=== PATIENT | female | born 1945 | race Caucasian/White ===

== ENCOUNTER 2023-07-13 10:54 | Emergency (ER) | payer MEDICARE, OTHER, SELFPAY ==
[2023-07-13 11:03] VITALS: BP 150/71
--- NOTE | 2023-07-13 12:27 | ED.GENMED ---
History of Present Illness
General
Chief Complaint: Facial Problem
Time Seen by Provider: 07/13/23 12:16
Travel History
Have you had any contact with someone who has COVID-19?: No
Do you have any symptoms of coronavirus? Fever > 100 degrees, chills, cough, shortness of breath, sore throat, loss of taste or smell, muscle aches, or headache?: No
History of Present Illness
History of Present Illness:
77-year-old female with history of hypertension presents the emergency department for evaluation of left facial droop that began 2 to 3 days ago. She notices increased tearing, denies any vision changes, neck pain, nausea, vomiting, or extremity
paresthesias. Denies any recent tick bites to her knowledge. Denies any recent cold or flu symptoms. Denies any facial rashes or ear pain.
Past History
Past History
ED Past Medical History: Cancer (Skin CA), HTN, Hypothyroidism and Other (Back pain, )
ED Past Surgical History: Gynecological (Hysterectomy), Orthopedic (Right hip replacement, elbow surgery, Laminectomy) and Other (parathyroidectomy, thyroidectomy)
Social History
Tobacco: Non-smoker
Alcohol: Occasional
Personal:
Living: with family
Employment: Employed
Review of Systems
Review of Systems
Allergies reviewed?: Yes
All Other Systems: ROS reviewed and negative except as documented in HPI and ROS
Phy Exam
Physical Exam
Physical Exam:
GEN: Well appearing, NAD, WDWN
HEENT: Oral mucosa moist, no scleral icterus, no nasal congestion. Left external auditory canal and tympanic membrane are clear with no evidence for vesicular lesions
Cardiac: Regular rate
Lung: No respiratory distress, no tachypnea
MSK: No gross deformity or injuries
Skin: Good color, no pallor or jaundice, no rashes
Neuro: AO x3; significant left-sided facial asymmetry involving the brow, minimal correction noted with motor activity ;BUE strength 5/5 in all callejas, sensation intact and symmetric. BLE strength 5/5 in all callejas, sensation intact and symmetric
Psych: Calm, cooperative
Course
Orders/Labs/Results
Orders:
Orders
07/13/23 12:48
Lyme Progressive Urgent
Vital Signs
Initial and Last Documented VS:
Initial Vital Signs
Temp Pulse Resp BP Pulse Ox
98.2 F 79 18 150/71 94
07/13/23 11:03 07/13/23 11:03 07/13/23 11:03 07/13/23 11:03 07/13/23 11:03
Last Documented Vital Signs
Temp Pulse Resp BP Pulse Ox
98.2 F 79 18 150/71 94
07/13/23 11:03 07/13/23 11:03 07/13/23 11:03 07/13/23 11:03 07/13/23 11:03
MDM/Problems Addressed
MDM/Problems Addressed:
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 There is no other sign of focal neurologic deficit concerning for subacute stroke. Will send Lyme titer but given lack of history suggestive of tick exposure or Lyme disease
will start the patient on high-dose steroids, antibiotics will be added if Lyme titer is positive
*Critical Care Note
Total Time (30-74mins, 75-104mins- exclusive of procedures): Not Applicable
ED Attending Note
-
Portions of this chart may have been created with voice recognition software.� Occasional wrong word or��sound alike� substitutions may have occurred due to the inherent limitations of voice recognition software.
Discharge Plan
Departure
Patient Disposition: Home (Routine Discharge)
Date of Disposition: 07/13/23
Time of Disposition: 12:37
Patient with high blood pressure during this ER visit?: No
Discharge Problem:
Apple's palsy
Instructions: Apple's Palsy (DC)
Prescriptions:
New
prednisone 50 mg tablet
50 mg PO DAILY 7 Days Qty: 7 0RF
No Action
tramadol 50 MG tablet
50 mg PO PRN (Reason: pain)
calcium carbonate [Oyster Shell Calcium 500] 500 MG tablet
2 PO DAILY
levothyroxine [Synthroid] 125 MCG tablet
125 mcg PO DAILY
naproxen [EC-Naprosyn] 375 MG tablet,delayed release (DR/EC)
375 mg PO BID
Multivitamin
1 PO DAILY
Norvasc
5 mg PO DAILY
Tylenol with Codeine
1 PO PRN (Reason: pain)
oxycodone-acetaminophen [Percocet] 1 EACH tablet
1 ea PO Q4HPRN PRN (Reason: pain) Qty: 20 0RF
prednisone 10 MG tablet
10 mg PO .TAPER Qty: 30 0RF
Rx Instructions:
Take 50mg daily for 2 days, 40mg daily for 2 days, 30mg daily for 2 days, 20mg daily for 2 days, 10mg daily for 2 days
oxycodone-acetaminophen 5 MG/325 MG tablet
1 tab PO Q4HPRN PRN (Reason: severe pain) Qty: 20 0RF
Referrals:
Adriana Rai MD [Family Provider] -
Activity Restrictions/Additional Instructions:
If your Lyme test is positive, we will stop the steroids and start antibiotics. This test will take 3-4 days
Interventions
Interventions:
*Risk Screen - Suicide Last Done: 07/13/23 11:03
*General Assessment Last Done: 07/13/23 11:54
*Neglect/Abuse Screening Last Done: 07/13/23 11:03
ED- Fall Risk Assessment Last Done: 07/13/23 11:53
*ED COVID-19 Vaccine History Last Done: 07/13/23 11:03
*Nursing Disposition Last Done: 07/13/23 12:59
ED- Neurological Assessment Last Done: 07/13/23 11:52
ED-Skin Assessment Last Done: 07/13/23 11:52
Discharge Date and Time
Discharge Date/Time: 07/13/23 12:59
Print Language: [place]
[2023-07-14 15:08] LABS: Lyme Antibody Screen, EIA Negative (Negative)
== END 2023-07-13 12:59 | disposition home or self-care (01) ==
LOC: EMR 10:54
PROVIDERS: Physician Assistant; EMERGENCY PHYSICIAN Emergency Medicine; FAMILY PHYSICIAN Family Medicine
DX: G51.0 Bell's palsy (principal); I10 Essential (primary) hypertension; E03.9 Hypothyroidism, unspecified; Z85.828 Personal history of other malignant neoplasm of skin; Z96.641 Presence of right artificial hip joint; Z88.5 Allergy status to narcotic agent
CPT/HCPCS: 99283; 86618